=== PATIENT | male | born 1990 | race Caucasian/White ===

== ENCOUNTER 2024-02-15 18:50 | Emergency (ER) | payer BC ==
[~2024-02-15] VITALS: Ht 188 cm; Wt 74.0 kg
[2024-02-15 19:11] VITALS: TEMP 99.3
[2024-02-15] MEDS: LIDOcaine 1% 30ml preserv. free vial IJ STA (21:45)
[2024-02-15 22:01] VITALS: BP 138/78; PULSE 73; RESP 17; O2SAT 98
== END 2024-02-15 22:20 | disposition home or self-care (01) ==
LOC: ER 18:51
DX: S61.216A Laceration without foreign body of right little finger without damage to nail, initial encounter (principal); S81.812A Laceration without foreign body, left lower leg, initial encounter; W04.XXXA Fall while being carried or supported by other persons, initial encounter; Y93.89 Activity, other specified; Y92.89 Other specified places as the place of occurrence of the external cause; Y99.8 Other external cause status
CPT/HCPCS: 12002; 73140; 73590; 99284; J7030; A6258; A6446; A6449